=== PATIENT | female | born 2000 | race Caucasian/White ===

== ENCOUNTER 2023-12-11 09:59 | Emergency (ER) | payer MEDICAID ==
[~2023-12-11] VITALS: Ht 160 cm; Wt 97.6 kg
[2023-12-11 10:11] VITALS: BP 134/81; PULSE 98; RESP 18; TEMP 97.6; O2SAT 100
== END 2023-12-11 11:33 | disposition home or self-care (01) ==
LOC: ER 09:59
DX: M67.431 Ganglion, right wrist (principal)
CPT/HCPCS: 73110; 99283